=== PATIENT | female | born 1965 | race Caucasian/White ===

== ENCOUNTER → 2018-04-13 | Day surgery (SDC) | payer OTHER ==
[~2018-04-13] VITALS: Ht 162.6 cm; Wt 65.8 kg
[~2018-04-13] MED LIST: ATOR40TA59 PO; BUDE10.2 IH; BUPIVACAINE 0.5% 50 ML VIAL. ONE; BUPR150T6 PO; CHOL100013 PO; CITA20TA9 PO; CLON1TAB4 PO; CRESTOR20 MG PO; CYAN10005 PO; CYAN250012 PO; DEXAMETHASONE SOD PHOS 4 MG/ML VIAL ONE; FEBU40TA PO; FEBU80TA2 PO; FLUT10SP NS; FOLI1TAB16 PO; GABA-586 PO; HYDR-971 PO; HYDROcodone/APAP 5/325MG 1 TAB TABLET ONE; HYDROcodone/APAP 5/325MG 1 TAB TABLET PO PRN; IBUP-1060 PO; IV RINGERS,LACTATED 1000ML 1,000 ML IV SCH; LEFLUNOMIDE20 MG PO; LIDOCAINE 1% PF 2 ML VIAL. ID PRN; LIDOCAINE 1% PF 30 ML VIAL. INJ ONE; LIDOCAINE 2% PF Vial for OR 5 ML VIAL. ONE; LISI-334 PO; LISI1TAB5 PO; MAGN100T3 PO; METH25VI27 SQ; MIDAZOLAM HCL/PF 2 MG/2 ML VIAL. ONE; MORPHINE SULFATE 2 MG/ML DISP.SYRIN. IV PRN; OMEP40CA5 PO; OXYC10TA45 PO; OXYC1TAB7 PO; PHENYLEPHRINE in 0.9% NACL PF 1 MG/10 ML SYRINGE. IV ONE; POVIDONE-IODINE 10% TOPICAL OINTMENT 28GM TUBE. TP ONE; PROAIR RESPICL90 MCG IH; PROG100C15 PO; PROPOFOL 20 ML IV ONE; RANI150T2 PO; SPIR50TA4 PO; TRAM50TA PO; fentaNYL PF VIAL 100 MCG/2 ML VIAL IV PRN; fentaNYL PF VIAL 100 MCG/2 ML VIAL ONE
[2018-04-13 10:55] LABS: BASO % 1 % (0-3); EOS # 0.5 x10^3/uL (0.0-0.7); EOS % 7 % (0-3); HEMOGLOBIN 14.2 g/dL (12.0-15.5); LYMPH # 1.3 x10^3/uL (1.0-4.8); LYMPH % 19 % (24-48); MEAN CORPUSCULAR HEMOGLOBIN 34 pg (25-35); MEAN CORPUSCULAR HGB CONC 34 g/dL (31-37); MEAN CORPUSCULAR VOLUME 99 fL (79-100); MONO # 0.7 x10^3/uL (0.0-1.1); MONO % 10 % (0-9); NEUT # 4.5 x10^3uL (1.8-7.7); NEUT % 64 % (31-73); PLATELET COUNT 336 x10^3/uL (140-400); RED BLOOD COUNT 4.24 x10^6/uL (3.50-5.40); RED CELL DISTRIBUTION WIDTH 13.1 % (11.5-14.5); WHITE BLOOD COUNT 7.1 x10^3/uL (4.0-11.0)
[2018-04-13 11:13] LABS: CALCIUM 8.6 mg/dL (8.5-10.1); CREATININE 0.9 mg/dL (0.6-1.0); GFR 65.8; POTASSIUM 4.5 mmol/L (3.5-5.1)
--- NOTE | 2018-04-13 14:15 | PDOC4 ---
OPERATIVE NOTE: Surgeon: Ryan Pre operative diagnosis: Hallux rigidus left foot Post operative diagnosis: same Procedure: 1st metatarsal phalangeal joint arthrodesis Anesthesia: MAC with local Hemostasis : Left ankle tourniquet at 250mmHg EBL: 1mL Materials: (3) 3.0 partially threaded cancellous screw Integra Intraoperative findings: Severe denuding of the dorsal 3/4 of the 1st metatasral head and proximal phalanx base with loose joint mice dorsally Patient tolerated anesthesia and procedure well and transferred to PACU With VSS and VSI to left foot BRUCE SENIOR DPM Apr 13, 2018 14:15
--- NOTE | 2018-04-13 14:45 | OP ---
DATE OF SURGERY: 04/13/2018 PREOPERATIVE DIAGNOSIS: Hallux rigidus, left foot. POSTOPERATIVE DIAGNOSIS: Hallux rigidus, left foot. PROCEDURE: First metatarsophalangeal joint arthrodesis, left foot. SURGEON: Rita Davis DPM ANESTHESIA: MAC with local. HEMOSTASIS: Left ankle tourniquet at 250 mmHg. INDICATIONS: The patient is a 52-year-old female with past medical history significant for rheumatoid arthritis, who complains of pain and swelling in the first metatarsophalangeal joint of the left foot. Symptoms have been present for several years. She has failed conservative treatment of stiff toed shoe gear and nonsteroidal anti-inflammatories and ice. The patient underwent x-rays in the office, which showed severe first metatarsophalangeal joint narrowing and large dorsal exostosis with joint mice. Discussed with the patient the preoperative diagnosis, possible risks, benefits, and complications to include delayed or nonhealing, need for further surgery, infection, lack of toe purchase, no range of motion to the first metatarsophalangeal joint, chronic pain, chronic swelling, damage to blood vessels or nerves, blood clot to the leg, blood clot to the lung, need for further surgery. All questions were answered. No guarantees were made. DESCRIPTION OF PROCEDURE: The patient was transported to the operating room via a cart and placed on the operating table in supine position. Final verification of the surgery, the patient, and limb was performed. The patient was given 1 gram of IV Ancef preoperatively. A well-padded tourniquet was placed over the left ankle. Timeout was taken to verify the patient, surgery, and limb to be performed. A Warner block was then given to the left foot consisting of a 1:1 mixture of 1% lidocaine plain and 0.5% Marcaine plain, 20 mL total. The left foot was then prepped and draped in the usual aseptic manner. The Esmarch bandage was used to exsanguinate the left foot. The left ankle tourniquet was inflated to 250 mmHg. Attention was directed to the left first ray where a 5 cm incision was made medial to the extensor hallucis longus tendon. This was deepened to the level of the joint capsule. The small vessels were cauterized and retracted from the surgical site. A linear incision was made and the joint capsule was resected from the distal one-third of the first metatarsal and from the base of the proximal phalanx. It was noted to be severe degenerative changes with denuded cartilage of the dorsal three-quarters of both the first metatarsal head and the proximal phalanx with severe joint mice and loose bodies to the dorsal first metatarsal and base of the proximal phalanx. These were debrided out. Next, I used a reamer to remove the remaining cartilage from the first metatarsal as well as from the base and also drilled extra holes with K-wire to allow for bony bleeding. The first metatarsophalangeal joint was then placed into slight dorsiflexion and slight abduction rectus position and a guidewire was used for temporary fixation. Next, a guidewire was used starting proximal plantar medial to distal lateral dorsal and then second screw was placed through the base of the proximal phalanx dorsal medial to distal lateral. C-arm fluoroscopy was utilized to verify satisfactory alignment and the 3.0 partially threaded Integra screw was then started through the proximal K-wire and noted she had very solid bone and head stripping of the screw, thus this then had to be removed and then we put the distal screw in first. It was countersunk and measured and then overdrilled and then placed in the partially threaded 3.0 cancellous screw. Next, we utilized the new K-wire to apply a second screw. Solid fixation was achieved; however, there was concern that the distal aspect of the screw may be forming a stress riser through the proximal phalanx base. Thus, we left the screw in because it did have solid fixation, but we applied one more 3.0 partially threaded screw from dorsal proximal to plantar distal through the first metatarsophalangeal joint. Good fixation was achieved and a C-arm fluoroscopy was utilized both on AP and lateral to confirm the satisfactory position. The wound was then copiously irrigated with sterile saline. The joint capsule was closed with 2-0 Vicryl and the skin was closed with 3-0 Vicryl and 4-0 nylon. A postop injection was given of 10 mL of 0.5% Marcaine plain and a postop dressing was applied with Betadine ointment, Adaptic gauze, 4 x 4s, Kerlix bandage and Ken bandage. The patient tolerated both anesthesia and procedure well. The tourniquet was deflated after dressing was applied and noted a good perfusion to all digits of the left foot. The patient is to have Cam boot to the left lower extremity. The patient was given [place] for postoperative pain and postoperative instructions are in the chart. RITA DAVIS DPM DR: Ami JOB#: [id number] / [id number]
--- NOTE | 2018-04-13 15:01 | RAD ---
FOOT LEFT 2V Clinical Indication: post op Comparison: None. Findings: There are 3 oblique longitudinal cannulated cancellous screws that are fixating the great toe MTP joint. There is joint space narrowing of the first MTP. There is overlying bandage material. No acute fracture. Bony articulations are maintained. No dorsal soft tissue swelling. The mineralization is normal. IMPRESSION: Internal fixation of the first MTP joint. Electronically signed by: Tirso Posada MD (04/13/2018 2:57 PM) [id number]
[2018-04-13 15:25] VITALS: BP 105/57
== END | disposition home or self-care (01) ==
LOC: SURG 09:52
PROVIDERS: ATTEND Podiatrist Foot & Ankle Surgery
DX: M20.22 Hallux rigidus, left foot (principal); Z88.2 Allergy status to sulfonamides; E78.00 Pure hypercholesterolemia, unspecified; I10 Essential (primary) hypertension; J45.909 Unspecified asthma, uncomplicated; K21.9 Gastro-esophageal reflux disease without esophagitis; Z90.710 Acquired absence of both cervix and uterus; M79.7 Fibromyalgia; M06.9 Rheumatoid arthritis, unspecified; M10.9 Gout, unspecified; F41.9 Anxiety disorder, unspecified; F32.9 Major depressive disorder, single episode, unspecified; Z88.8 Allergy status to other drugs, medicaments and biological substances; Z79.899 Other long term (current) drug therapy
CPT/HCPCS: 28750; 36415; 73620; 80048; 85025; C1713; J0690; J2001; J2250; J2370; J2704; J3010; J3490; J7120; J1100

== ENCOUNTER 2019-01-07 09:59 | Emergency (ER) | payer OTHER ==
[~2019-01-07] VITALS: Ht 162.6 cm; Wt 65.8 kg
[~2019-01-07 09:59] MED LIST changes: -BUPIVACAINE 0.5% 50 ML VIAL. ONE; +CLON1TAB11 PO; -CLON1TAB4 PO; -DEXAMETHASONE SOD PHOS 4 MG/ML VIAL ONE; -GABA-586 PO; +GABA300C18 PO; +HYDR-3164 PO; -HYDR-971 PO; -HYDROcodone/APAP 5/325MG 1 TAB TABLET ONE; -HYDROcodone/APAP 5/325MG 1 TAB TABLET PO PRN; -IV RINGERS,LACTATED 1000ML 1,000 ML IV SCH; -LIDOCAINE 1% PF 2 ML VIAL. ID PRN; -LIDOCAINE 1% PF 30 ML VIAL. INJ ONE; -LIDOCAINE 2% PF Vial for OR 5 ML VIAL. ONE; -MIDAZOLAM HCL/PF 2 MG/2 ML VIAL. ONE; -MORPHINE SULFATE 2 MG/ML DISP.SYRIN. IV PRN; -OXYC10TA45 PO; +OXYC10TA46 PO; -PHENYLEPHRINE in 0.9% NACL PF 1 MG/10 ML SYRINGE. IV ONE; -POVIDONE-IODINE 10% TOPICAL OINTMENT 28GM TUBE. TP ONE; -PROPOFOL 20 ML IV ONE; -fentaNYL PF VIAL 100 MCG/2 ML VIAL IV PRN; -fentaNYL PF VIAL 100 MCG/2 ML VIAL ONE
[2019-01-07 10:17] VITALS: BP 133/67
[2019-01-07] MEDS ORDERED: ACETAMINOPHEN 500 MG TABLET PO ONE (10:30)
--- NOTE | 2019-01-07 10:37 | PHYS DOC ---
Past Medical History Past Medical History: Asthma, High Cholesterol, Hypertension, Sciatica, Other Additional Past Medical Histor: GOUT Past Surgical History: , Hysterectomy Alcohol Use: Occasionally Drug Use: None Adult General Chief Complaint Chief Complaint: KNEE INJURY HPI HPI 53-year-old female presents to ER for POV for complaints of left knee and lower leg injury which occurred last night when the neighbor dog ran into her. Patient reports the dog was running at her when it collided into her- she is uncertain if she twisted her lt knee/lower extremity or if pain is d/t fall. Patient denies any other injury during the fall. Patient states the injury occurred in the evening last night and she took her Rx'd RA/fibromyalgia pain medication around 3 a.m. patient reports she has been unable to bear weight on her left lower extremity. Review of Systems Review of Systems HENT: Denies head pain/injury : Denies urinary sxs Musculoskeletal: Denies back/neck pain. Reports lt knee/lower leg pain and difficulty walking d/t pain Integument: Denies abrasions/bruising/swelling Neurologic: Denies focal weakness or sensory changes [] All other systems were reviewed and found to be within normal limits, except as documented in this note. Current Medications Current Medications Current Medications Medications (Trade) Dose Ordered Sig/Leno Start Time Stop Time Status Last Admin Dose Admin Acetaminophen (Tylenol) 1,000 mg 1X ONCE 01/07/19 10:30 01/07/19 10:31 DC 01/07/19 10:45 1,000 MG Allergies Allergies Allergies Coded Allergies Type Severity Reaction Last Updated Verified Sulfa (Sulfonamide Antibiotics) Allergy Intermediate 12/15/15 Yes prochlorperazine Allergy Intermediate 12/19/15 Yes Physical Exam Physical Exam Constitutional: Well developed, well nourished, no acute distress, non-toxic appearance. [] HENT: Normocephalic, atraumatic, oropharynx moist, nose normal. [] Eyes: Pupils equal, conjunctiva normal, no discharge. [] Neck: Normal range of motion, no tenderness, supple, no stridor. [] Cardiovascular:Heart rate regular Lungs & Thorax: Resp. equal/nonlabored Skin: Warm, dry, no erythema, no rash. [] Back: No tenderness, full ROM Extremities: Pelvis stable/nontender. No cyanosis, no clubbing, ROM intact upper/rt lower extremities, no edema. 2+ bilat. dorsalis pedis/posterior tibial. Tender lt anterior knee and lower anterior patterson- no visible injury/ecchymosis/swelling. On exam pt has knee bent during exam. Neurologic: Alert and oriented X 3, normal motor function, normal sensory function, no focal deficits noted. [] Psychologic: Affect normal, judgement normal, mood normal. [] Current Patient Data Vital Signs Vital Signs Date Time Temp Pulse Resp B/P (MAP) Pulse Ox O2 Delivery O2 Flow Rate FiO2 01/07/19 10:17 98.4 116 18 133/67 (89) 96 Room Air 98.4 EKG EKG [] Radiology/Procedures Radiology/Procedures PROCEDURE: KNEE LEFT 3V EXAM: Left tibia and fibula, 2 views; left knee, 3 views. HISTORY: Fall. COMPARISON: None. FINDINGS: 2 views of the left tibia and fibula and 3 views of the left knee are obtained. There is no fracture, dislocation or subluxation. There is no periosteal reaction. There is slight lucency with curvilinear sclerosis along the medial aspect of the left tibial diaphysis, of no clinical significance. There is mild tricompartmental spurring. There is a moderate left knee effusion. IMPRESSION: 1. Moderate left knee effusion. 2. Mild tricompartmental osteoarthritis of the left knee. Electronically signed by: Valorie Damon MD (01/07/2019 10:38 AM) [facility] DICTATED and SIGNED BY: VALORIE DAMON MD DATE: 01/07/19 1038 PROCEDURE: CT LOWER EXTREMITY WO LEFT EXAM: Left knee CT without contrast. HISTORY: Pain. Trauma. TECHNIQUE: Computed tomographic images of the left knee are obtained without contrast. *One or more of the following individualized dose reduction techniques were utilized for this examination: 1. Automated exposure control. 2. Adjustment of the mA and/or kV according to patient size. 3. Use of iterative reconstruction technique. COMPARISON: Radiographs obtained on the same date. FINDINGS: There is a minimally displaced fracture of the lateral proximal tibial metaphysis with extension to the lateral tibial plateau. There is minimal associated anterior lateral tibial plateau depression by approximately 2 mm. There are few small joint loose bodies along the anterior tibial plateau tiny joint loose bodies along the posterior tibial plateau. There is mild tricuspid foraminal spurring. There is a moderate joint effusion. No suspicious lytic or sclerotic osseous lesion is seen. There is minimal tricompartmental subchondral sclerosis. IMPRESSION: 1. Minimally displaced lateral proximal tibial metaphyseal fracture with intra-articular fracture line extension to the lateral tibial plateau. There is minimal associated depression of the lateral tibial plateau. 2. Moderate joint effusion. 3. Mild tricompartmental osteoarthritis of the left knee with a few joint loose bodies. Electronically signed by: Valorie Damon MD (01/07/2019 11:44 AM) [facility] DICTATED and SIGNED BY: VALORIE DAMON MD DATE: 01/07/19 2646 Course & Med Decision Making Course & Med Decision Making Pertinent Imaging studies reviewed. (See chart for details) 1058: Discussed x-ray results with patient and her with moderate joint effusion of left knee reported- no report of acute fractures. Offered CT for further evaluation and patient is agreeable with this plan. Patient maintains PMS intact in left lower extremity. Patient is able to flex and extend her left knee but reports increased pain with movements. Ice pack was provided. Patient reports Tylenol has helped some with pain since arriving. 1205: Spoke with Dr. Oconnor ortho intervention specialist and discussed pt's case and imaging results. He will come to ER and eval. pt. This was discussed with pt and her husb. 1240: Per Dr. Oconnor pt will be placed in post op hinged lt knee immobilizer with crutches provided. Will provide Rx for [place]. Patient will follow up with Dr. Oconnor at his office. Will provide referral information on discharge paperwork. Education provided on signs and symptoms to return to ER for. Discharge instructions were discussed. Following knee immobilizer placement remains PMS intact in left lower extremity. Dragon Disclaimer Dragon Disclaimer This electronic medical record was generated, in whole or in part, using a voice recognition dictation system. Departure Departure Impression: Primary Impression: Fracture of proximal end of left tibia Additional Impression: Knee pain, left Disposition: HOME, SELF-CARE Condition: STABLE Referrals: CINDI CEJA MD (PCP) CECILLE OCONNOR MD Patient Instructions: Crutch Use, Knee Pain, RICE - Routine Care for Injuries, Tibial Fracture, Adult Additional Instructions: Follow-up with Dr. Oconnor at his office for reevaluation and further care. Call as soon as possible for scheduling an appointment. Continue home medications as prescribed. If taking [place] prescription no driving or drinking alcohol. Scripts Hydrocodone/Apap 5-325 (NORCO 5-325 TABLET) 1 Each Tablet 1 TAB PO PRN Q6HRS PRN for PAIN, #12 TAB 0 Refills Prov: NOA HILL APRN 01/07/19 Problem Qualifiers NOA HILL APRN January 07, 2019 10:37
--- NOTE | 2019-01-07 10:41 | RAD ---
EXAM: Left tibia and fibula, 2 views; left knee, 3 views. HISTORY: Fall. COMPARISON: None. FINDINGS: 2 views of the left tibia and fibula and 3 views of the left knee are obtained. There is no fracture, dislocation or subluxation. There is no periosteal reaction. There is slight lucency with curvilinear sclerosis along the medial aspect of the left tibial diaphysis, of no clinical significance. There is mild tricompartmental spurring. There is a moderate left knee effusion. IMPRESSION: 1. Moderate left knee effusion. 2. Mild tricompartmental osteoarthritis of the left knee. Electronically signed by: Valorie Egan MD (01/07/2019 10:38 AM) [facility]
--- NOTE | 2019-01-07 11:47 | RAD ---
EXAM: Left knee CT without contrast. HISTORY: Pain. Trauma. TECHNIQUE: Computed tomographic images of the left knee are obtained without contrast. *One or more of the following individualized dose reduction techniques were utilized for this examination: 1. Automated exposure control. 2. Adjustment of the mA and/or kV according to patient size. 3. Use of iterative reconstruction technique. COMPARISON: Radiographs obtained on the same date. FINDINGS: There is a minimally displaced fracture of the lateral proximal tibial metaphysis with extension to the lateral tibial plateau. There is minimal associated anterior lateral tibial plateau depression by approximately 2 mm. There are few small joint loose bodies along the anterior tibial plateau tiny joint loose bodies along the posterior tibial plateau. There is mild tricuspid foraminal spurring. There is a moderate joint effusion. No suspicious lytic or sclerotic osseous lesion is seen. There is minimal tricompartmental subchondral sclerosis. IMPRESSION: 1. Minimally displaced lateral proximal tibial metaphyseal fracture with intra-articular fracture line extension to the lateral tibial plateau. There is minimal associated depression of the lateral tibial plateau. 2. Moderate joint effusion. 3. Mild tricompartmental osteoarthritis of the left knee with a few joint loose bodies. Electronically signed by: Valorie Egan MD (01/07/2019 11:44 AM) [facility]
[2019-01-07] MEDS ORDERED: HYDR-3164 PO (13:21)
--- NOTE | 2019-01-08 10:35 | CONS ---
DATE OF CONSULTATION: 01/07/2019 ORTHOPEDIC EMERGENCY DEPARTMENT CONSULTATION: REQUESTING PHYSICIAN: Mony Schwab APRN. REASON FOR CONSULTATION: Left knee fracture. HISTORY OF PRESENT ILLNESS: Dunia is a 53-year-old female who injured her left knee when her neighbor's large dog ran into her. Apparently, the dog was running and collided to her and ran into her leg and gave out. She denies any head or other injury. No loss of consciousness during the fall. She has had ongoing left knee pain, and therefore, presented to the Emergency Department because she is having a lot of pain with any movement or bearing weight. PAST MEDICAL HISTORY: Significant for rheumatoid arthritis, hypercholesterolemia, hypertension, previous sciatica, asthma, gout and some fibromyalgia. PAST SURGICAL HISTORY: Hysterectomy and as well as a left great toe MTP joint fusion, which is not healed and still painful. MEDICATIONS: List is reviewed. ALLERGIES: SHE HAS ALLERGIES TO SULFA AND PROCHLORPERAZINE. FAMILY HISTORY: Noncontributory. SOCIAL HISTORY: Denies smoking or drug use. Occasional social alcohol consumption; is present with her currently. REVIEW OF SYSTEMS: She has had some previous knee pain, but says no more so than really the rest of her joints, which are bothered frequently by rheumatoid arthritis. She indicates that she has had some longstanding left foot pain and apparently a director of dietary attempted fusion of her MTP joint of the left great toe several months or perhaps a year ago, it really has not healed and it is painful with walking. Otherwise, joint pain is generally at baseline except for this injury to the left knee. She denies any current radiating pain, numbness, tingling, focal weakness, no head injury, loss of consciousness, chest pain, shortness of breath or other constitutional symptoms. PHYSICAL EXAMINATION: GENERAL: A pleasant, cooperative 53-year-old female, alert and oriented, no acute distress. EXTREMITIES: Examination of the left knee reveals some joint line tenderness, particularly laterally. I deferred doing a ligamentous exam due to her extreme pain. She does have some moderate swelling, particularly lateral and in the knee joint. Normal examination of the contralateral right knee, bilateral hips and ankles. She has well-healed incision from previous MTP joint fusion of the left great toe, but the area is painful with any stress. Normal examination of bilateral shoulders, elbows and wrists with intact motor function, distal pulses, sensation, reflexes, skin in both upper and lower extremities throughout. IMAGING: X-rays show a lateral tibial plateau fracture with some very mild displacement about 2-[address] scan confirms the lateral tibial plateau fracture and also notes a significant degenerative change and bony spurring present at the knee joint. IMPRESSION: 1. Minimally displaced lateral tibial plateau fracture, left knee. 2. History of rheumatoid arthritis and multiple other medical problems. TREATMENT PLAN: I went over with her and her the treatment options. Although there is some slight displacement at the joint surface, I think we are on the borderline as far as fixing or not fixing this. The rheumatoid arthritis and other issues would lean me more toward not fixing at the present time. I did emphasize to her that she would likely be nonweightbearing probably for a couple of months. We talked about the possibility of operative fixation, and while I could improve the alignment, I am not sure that the risk I would put her through would improve her function enough to warrant surgical intervention. Likewise, if we keep weight off of this, gentle range of motion, brace, and see how she progresses along as long as there is no further displacement. She may elect to just observe the status of this, and if degenerative changes accelerate somewhat, perhaps total knee arthroplasty would be a more reliable pain relief of her in the future as her knee already has degenerative changes and again I really do not feel strongly as far as correcting the mild malalignment surgically based on her overall picture. She appreciated the discussion. All their questions were answered. She is going to elect nonoperative treatment. She was placed in a hinged postoperative knee brace and allowed gentle range of motion, strict nonweightbearing. Follow up next week for repeat evaluation and x-rays. I told her at any time if this is not manageable for her, we have further displacement or other indications for fixation of the fracture we could undergo at that time. She agreed with this treatment plan and again we will follow up next week with me in the office. CECILLE OCONNOR MD DR: WILLIE/yehuda JOB#: [id number] / [id number]
== END 2019-01-07 13:30 | disposition home or self-care (01) ==
LOC: ER 09:59
DX: S89.092A Other physeal fracture of upper end of left tibia, initial encounter for closed fracture (principal); M25.562 Pain in left knee; M17.12 Unilateral primary osteoarthritis, left knee; J45.909 Unspecified asthma, uncomplicated; E78.00 Pure hypercholesterolemia, unspecified; I10 Essential (primary) hypertension; M10.9 Gout, unspecified; Z90.710 Acquired absence of both cervix and uterus; Z88.2 Allergy status to sulfonamides; Z88.8 Allergy status to other drugs, medicaments and biological substances; W01.0XXA Fall on same level from slipping, tripping and stumbling without subsequent striking against object, initial encounter; Y93.89 Activity, other specified; Y92.89 Other specified places as the place of occurrence of the external cause; Y99.8 Other external cause status
CPT/HCPCS: 29505; 73562; 73590; 73700; 99284-25